=== PATIENT | female | born 1995 | race Caucasian/White ===

== ENCOUNTER 2023-02-03 10:06 | Emergency (ER) | payer MEDICAID ==
[~2023-02-03] VITALS: Ht 157.5 cm; Wt 65.8 kg
[2023-02-03 10:09] VITALS: BP 128/84
[2023-02-03] MEDS ORDERED: LIDOCAINE MPF 1% 10 MG/ML VIAL INJ ONE (10:45)
[2023-02-03] MEDS ORDERED: LIDOCAINE MPF 1% 5 ML ONE (11:53)
--- NOTE | 2023-02-03 12:00 | NUR ---
TO ER 11
[2023-02-03] MEDS ORDERED: IBUP-2213 PO (12:24)
[2023-02-03] MEDS ORDERED: CEPH-588 PO (12:24)
--- NOTE | 2023-02-03 12:28 | NUR ---
WOUND TO L ARMPIT DRESSED WITH NON ADHERENT AND BANDAGED WITH GAUZE ROLL.
[2023-02-03 13:01] VITALS: BP 111/65
== END 2023-02-03 13:01 | disposition home or self-care (01) ==
LOC: MED 10:06
DX: S61.412A Laceration without foreign body of left hand, initial encounter (principal); X58.XXXA Exposure to other specified factors, initial encounter; Y93.89 Activity, other specified; Y92.89 Other specified places as the place of occurrence of the external cause; Y99.8 Other external cause status
CPT/HCPCS: 12002; 99283; J2001